=== PATIENT | male | born 1990 | race Caucasian/White ===

== ENCOUNTER 2019-02-04 20:35 | Emergency (ER) | payer OTHER ==
[2019-02-04] MEDS ORDERED: FENTANYL CITRATE INJ/PF 100 MCG/2 ML AMPUL IV ONE (21:28)
[2019-02-04] MEDS ORDERED: ONDANSETRON HCL INJ/PF 4 MG/2 ML SDV IV ONE (21:29)
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
[2019-02-04] MEDS ORDERED: ONDANSETRON ODT 4 MG TAB (6 TAB/ER DISP) PO PRN (23:20)
[2019-02-04] MEDS ORDERED: HYDROCODONE/ACETAMINOPHEN 5-325 MG (6 TAB/ER DISP) PO PRN (23:20)
[2019-02-04 23:44] VITALS: BP 123/69
== END 2019-02-04 23:42 | disposition home or self-care (01) ==
LOC: ER 20:35
DX: S09.90XA Unspecified injury of head, initial encounter (principal); M25.512 Pain in left shoulder; S30.1XXA Contusion of abdominal wall, initial encounter; M54.2 Cervicalgia; R07.81 Pleurodynia; Z88.1 Allergy status to other antibiotic agents; Z88.0 Allergy status to penicillin; V49.50XA Passenger injured in collision with unspecified motor vehicles in traffic accident, initial encounter; Y93.9 Activity, unspecified; Y92.410 Unspecified street and highway as the place of occurrence of the external cause; Y99.9 Unspecified external cause status
CPT/HCPCS: 99284; 96374; 96375; 70450; 71260; 72125; 74177; J3010; J2405